=== PATIENT | female | born 1990 | race Caucasian/White ===

== ENCOUNTER 2017-04-03 14:59 | Outpatient (RCR) | payer OTHER ==
[~2017-04-03 14:59] MED LIST: BCP; LORTAB 5/500 501 TAB PO
== END 2017-04-25 13:27 | disposition home or self-care (01) ==
LOC: WSOH 14:59
DX: S20.221A Contusion of right back wall of thorax, initial encounter (principal); Y04.2XXA Assault by strike against or bumped into by another person, initial encounter; Y92.219 Unspecified school as the place of occurrence of the external cause; Y99.0 Civilian activity done for income or pay

== ENCOUNTER 2019-01-07 13:04 | Inpatient (IN) | payer BC ==
[~2019-01-07] VITALS: Ht 170.2 cm; Wt 80.9 kg
[2019-01-10] VITALS (46 sets, daily range): BP systolic 88–143; BP diastolic 53–89; PULSE 53–112; TEMP 97.6–98.7
--- NOTE | 2019-01-10 07:10 | NUR ---
Pt here for scheduled induction of labor. 39.2 weeks gestation, G1L1. Pt to [facility], explained. at bedside. IV started to left hand x 1 attempt, blood drawn from IV site and then LR infusing without difficulty. Consents signed and assessment complete. Pt with hx of leep procedure and asthma. RH negative and pt received Rhogam during . Pt states baby is active and having irregular contractions yesterday. FHR reactive. SVE: 1-2/70/-2 and small amt bloody show noted on exam glove. 0745:Pitocin started at 2mu per order. Physician to be here to evaluate and AROM this AM.
[2019-01-10 08:08] LABS: BASO % 0.4 % (0.0-2.0); EOS # 0.2 (0.0-0.7); GRAN # 6.6 (1.4-6.5); GRAN % 67.3 % (42.2-75.2); HEMOGLOBIN 12.5 g/dl (12.5-16.0); LYMPH # 2.2 (1.2-3.4); LYMPH % 22.2 % (20.0-51.0); MEAN CELL VOLUME 88 fl (80.0-100.0); MEAN CORPUSCULAR HEMOGLOBIN 31 pg (27.0-31.0); MEAN CORPUSCULAR HGB CONC 35 g/dl (33.0-37.0); MEAN PLATELET VOLUME 11.2 fl (7.4-10.4); MONO # 0.7 (0.1-0.6); MONO % 7.2 % (1.7-9.3); PLATELET COUNT 216 K/mm3 (130-400); RED BLOOD COUNT 4.09 M/mm3 (4.10-5.30); REDCELL DISTRIBUTION WIDTH-CV 12.5 % (11.5-14.5)
--- NOTE | 2019-01-10 08:30 | NUR ---
Pt up to bathroom at this time. 0845:Pt back to bed and EFM. Dr Bran here. SVE: AROM, clear fluid noted. Pt may have epidural when she desires.
--- NOTE | 2019-01-10 09:45 | NUR ---
Pt crying and breathing through contractions. Requests epidural. Miguel CELL PREPARER notified. 1000:Pt sitting up on side of bed. Miguel CELL PREPARER at bedside. Epidural placed. Single shot done at 1018 and test dose at 1019. Pt tolerated well. See anesthesia notes. FHR 118-120bpm intermittently while pt sitting up. After epidural pt repositioned to left wedge.
--- NOTE | 2019-01-10 11:05 | NUR ---
Pt comfortable from epidural. Guillory catheter placed. SVE:/-2. Pericare done and pt repositioned. 1110:Dr Bran called, updated. Will be here to evaluate over noon time.
--- NOTE | 2019-01-10 11:45 | NUR ---
Dr Bran here and reviews FHR monitor strip. No new orders at this time. Recurrent variable decelerations noted. 1215:Recurrent variable decels noted, SVE: 5/90/-2. Pt repositioned to right side. 1228:Recurrent prolonged variable/late decelerations noted. Pt repositioned to left lateral. Dr Bran at nurse's station and reviews FHR monitor strip. 1240:Physician at bedside, plan of care discussed with pt and . Variable declerations noted, moderate variability and accels noted. Physician order to give 500cc LR bolus at this time.
--- NOTE | 2019-01-10 13:25 | NUR ---
BP 88/53. Pt states feeling lightheaded, FHR noted with recurrent variable decels with contractions. 1337:10mg ephderine given IV. Repeat BP 116/58 1350:Pt states feeling "much better". Denies lightheadedness. 1405:SVE:7100/-1. Positive scalp stimulation noted. 1430:Recurrent variable decels noted with contractions. FHR decreasing to 60-70bpm for 50-[address] Bran called and updated, notified of recurrent variable decelerations with contractions and sve:7100/-1. No new orders at this time. Will continue to monitor.
--- NOTE | 2019-01-10 15:15 | NUR ---
SVE: 100/0. Recurrent early/variable decelerations noted with every contraction. Pt repositioned and notified. No new orders. Moderate variability noted.
--- NOTE | 2019-01-10 16:00 | NUR ---
Pt calls out and feeling rectal pressure. SVE: AL/100/0. 1605:Pt sitting up vomiting, 100ml emesis.
--- NOTE | 2019-01-10 16:38 | NUR ---
Dr Bran here, reviews FHR monitor strip. 1641:Physician at bedside, SVE: complete +1. Instructions on how to push. Pt begins pushing with physician. 1655:Guillory catheter removed. Pt continues to push with physician at bedside. FHR with moderate variability and accels noted. Intermittent variable decels noted. 1720:Pt prepped for delivery. 1729: of infants head and shoulders. Nuchal x 1 reduced per physician and cord clamped and cut. in care of Thuy LEONARD. 1733:Spontaneous delivery of placenta. LR with pitocin infusing per protocol at 333ml/hr. 2nd degree laceration repaire by physician. Fundus firm, bleeding WNL. Pericare done and new pads and ice pack in place. Pt sitting up in bed holding infant skin to skin.
[2019-01-10] MEDS ORDERED: PRENATAL PO (18:31)
[2019-01-11] VITALS (7 sets, daily range): BP systolic 100–130; BP diastolic 52–88; PULSE 66–79; TEMP 97.9–98.8
--- NOTE | 2019-01-11 09:11 | NUR ---
Initial visit; Patient sleeping, Curtain Worker left card of congratulations and God's blessings for the of their daughter and information regarding the availability of spiritual care at [facility].
[2019-01-12 08:45] VITALS: BP 109/55; PULSE 68; TEMP 98
[2019-01-12] MEDS ORDERED: IBU800 M1 PO (11:15)
--- NOTE | 2019-01-12 13:00 | NUR ---
Discharge instructions given, verbalizes understanding.
== END 2019-01-12 13:40 | disposition home or self-care (01) | DRG 807 ==
LOC: LDR 01-10 07:03 → OB 01-10 20:35 → LDR 01-14 13:03
PROVIDERS: ADMIT Obstetrics & Gynecology
PROC: 10E0XZZ Delivery of Products of Conception, External Approach (ICD-10-PCS; principal; 2019-01-10)
PROC: 0KQM0ZZ Repair Perineum Muscle, Open Approach (ICD-10-PCS; 2019-01-10)
PROC: 3E033VJ Introduction of Other Hormone into Peripheral Vein, Percutaneous Approach (ICD-10-PCS; 2019-01-10)
PROC: 10907ZC Drainage of Amniotic Fluid, Therapeutic from Products of Conception, Via Natural or Artificial Opening (ICD-10-PCS; 2019-01-10)
PROC: 3E0R3BZ Introduction of Anesthetic Agent into Spinal Canal, Percutaneous Approach (ICD-10-PCS; 2019-01-10)
DX: O69.81X0 Labor and delivery complicated by cord around neck, without compression, not applicable or unspecified (principal); Z37.0 Single live birth; O70.1 Second degree perineal laceration during delivery; Z3A.39 39 weeks gestation of pregnancy
CPT/HCPCS: J2590; J2791; J2795; J7120

== ENCOUNTER → 2019-01-22 | Outpatient (CLI) | payer BC ==
[~2019-01-22] MED LIST changes: +IBU800 M1 PO; +PRENATAL PO
--- NOTE | 2019-01-22 12:14 | NUR ---
Pt, Vanessa Qureshi, into clinic with 12 day old Marissa for weight check and advice on weaning from the breast shield. Marissa was born on [birth year] with a weight of 6# 12 oz. Today, Marissa's prefeed weight was noted as 7# 7.6 oz (3392 gms), Marissa is nursing 9 times per day and diapers are WNL. Marissa is not taking any supplemental feedings. LC offered suggestions on weaning from breast shield. Vanessa attempted to latch Marissa to the first breast without shield; however, was unable to obtain a latch. She then put the shield on for a few minutes before removing and successfully latching Marissa without the shield. Vanessa was then able to independently. Marissa nursed bilaterally with a gain of 3 oz. POC: Continue to feed ad ronit. Attempt initial latch without shield, if unsuccessful, remove part way through feeding and relatch without shield. If unable to latch successfully without use of shield, go back to shield use for duration of feeding. Return to clinic next week for weight check. Questions invited and answered. Understanding verbalized.
== END ==
LOC: OLC 10:36
DX: Z39.1 Encounter for care and examination of lactating mother (principal); Z71.89 Other specified counseling

== ENCOUNTER → 2019-01-29 | Outpatient (CLI) | payer BC ==
--- NOTE | 2019-01-29 11:13 | NUR ---
Pt, Vanessa Qureshi, into clinic with 3 week old Marissa for weight check and breast feeding evaluation. Marissa's was [birth year] with a weight of 6# 12 oz. Last week, Vanessa and Marissa were into the clinic for assistance with weaning from the nipple shield. Since last week, Vanessa has been able to fully wean from the shield. Vanessa states Marissa is strictly breast feeding and is nursing at least 8 times per day and reports diapers to be WNL. Today's prefeed weight was noted as 8# 2.4 oz (3696 gm), a gain of 10.9 oz since last week. While in clinic, Marissa nursed bilaterally, without the use of the nipple shield, with a total gain of 3.4 oz (96 gms). Questions about pumping and using pacifier answered. POC: Continue to feed ad ronit. Start pumping to work on building stock for Vanessa's return to work at 6 weeks of age. Start introducing bottle a few times a week to help Marissa get used to taking a bottle before starting daycare. Questions invited and answered. Understanding verbalized.
== END ==
LOC: OLC 10:55
DX: Z39.1 Encounter for care and examination of lactating mother (principal); Z71.89 Other specified counseling